=== PATIENT | male | born 1985 | race Caucasian/White ===

== ENCOUNTER 2018-07-30 14:54 | Emergency (ER) | payer OTHER ==
[~2018-07-30] VITALS: Ht 182.9 cm; Wt 113.0 kg
--- NOTE | 2018-07-30 15:00 | NUR ---
PT STRAIGHT BACK FROM US W/ CO LLE DVT DX BY . PT REPORTS LLE PAIN/SWELLING X FOUR DAYS. L CALF APPEARS RED/SWOLLEN. <2S CAP REFILL, +CMS. PEDAL PULSE FAINT. PT DENIES CP/SOB/GROSS NEURO INTACT. XARELTO ADMIN BY AREA COORDINATOR. BP/SPO2/ECG MONITORING IN PLACE. NSR ON MONITOR.
[2018-07-30 16:09] VITALS: BP 128/70
--- NOTE | 2018-07-30 16:10 | NUR ---
LAB IN TO DRAW. PT REPORTING INCREASE IN LLE PAIN AND IS REQUESTING PAIN MEDS. ERP AWARE. AWAITING ORDER
[2018-07-30 16:23] LABS: BASOPHILS # (AUTO) 0.03 x10^3/uL (0-0.1); BASOPHILS % (AUTO) 1 % (0-1); EOSINOPHILS # (AUTO) 0.28 x10^3/uL (0-0.4); EOSINOPHILS % (AUTO) 4 % (1-7); LYMPHOCYTES # (AUTO) 2.32 x10^3/uL (1-3.4); LYMPHOCYTES % (AUTO) 32 % (22-44); MD NO; MEAN CORPUSCULAR HEMOGLOBIN 30.4 pg (27.5-34.5); MEAN CORPUSCULAR HGB CONC 35.3 g/dL (33.2-36.2); MEAN CORPUSCULAR VOLUME 86.3 fL (81-97); MEAN PLATELET VOLUME 7.3 fL (7.4-10.4); MONOCYTES # (AUTO) 0.51 x10^3/uL (0.2-0.8); MONOCYTES % (AUTO) 7 % (2-9); NEUTROPHILS # (AUTO) 4.15 x10^3/uL (1.8-6.8); NEUTROPHILS % (AUTO) 57 % (42-75); PLATELET COUNT 193 x10^3/uL (130-400); RED BLOOD COUNT 4.91 x10^6/uL (4.38-5.82); RED CELL DISTRIBUTION WIDTH 12.3 % (9.4-14.8)
[2018-07-30] MEDS ORDERED: OXYcodone/APAP 5/325MG TABLET ONE (16:23)
[2018-07-30 16:31] LABS: ANION GAP 8 mmol/L (5-15); CHLORIDE 109 mmol/L (98-107)
--- NOTE | 2018-07-30 16:52 | NUR ---
DC EDUCATION PROVIDED, PT DEMONSTRATES UNDERSTANDING. PT TRANSFERED SELF TO WHEELCHAIR. WHEELED TO DC WITH RN AND FAMILY. TO TRANSPORT PT HOME.
[2018-07-30] MEDS ORDERED: OXYcodone/APAP 5/325MG TABLET PO ONE (17:00)
== END 2018-07-30 16:54 | disposition home or self-care (01) ==
LOC: ED 16:52
DX: I82.412 Acute embolism and thrombosis of left femoral vein (principal); I82.432 Acute embolism and thrombosis of left popliteal vein; I82.442 Acute embolism and thrombosis of left tibial vein
CPT/HCPCS: 36415; 80048; 81241; 85025; 85303; 85306; 99283

== ENCOUNTER → 2018-07-30 | Outpatient (CLI) | payer OTHER ==
[~2018-07-30] MED LIST: RIVA15TA PO
== END | disposition home or self-care (01) ==
LOC: RAD 13:48
PROVIDERS: ATTEND Emergency Medicine
DX: I82.4Z2 Acute embolism and thrombosis of unspecified deep veins of left distal lower extremity (principal)

== ENCOUNTER 2018-08-01 00:27 | Emergency (ER) | payer OTHER ==
[~2018-08-01] VITALS: Ht 182.9 cm; Wt 112.0 kg
--- NOTE | 2018-08-01 01:34 | NUR ---
PT IN ROOM ERP AT BEDSIDE. VSS, C/O LEG PAIN AND INTERMITTEN CHEST PAIN, DVT DIAGNOSED 2 DAYS AGO.
[2018-08-01] MEDS ORDERED: RIVA15TA PO (01:37)
[2018-08-01] MEDS ORDERED: HYDROmorphone 2 MG/ML, 1ML ONE (02:15)
--- NOTE | 2018-08-01 02:20 | NUR ---
PT MEDICATED FOR PAIN PER EMAR
[2018-08-01] MEDS ORDERED: HYDROmorphone 2 MG/ML, 1ML IVPush PRN (02:30)
[2018-08-01 02:38] LABS: INTERNATIONAL NORMALIZED RATIO 1.2 (0.93-1.1); PROTHROMBIN TIME 12.6 Seconds (9.6-11.5)
--- NOTE | 2018-08-01 02:42 | NUR ---
PT IN US ATT.
--- NOTE | 2018-08-01 03:00 | NUR ---
REPORT RECEIVED, CARE ASSUMED.
[2018-08-01 03:37] VITALS: BP 116/71
--- NOTE | 2018-08-01 03:38 | NUR ---
RESULTS IN, CHART UP FOR RECHECK. PT RESTING QUIETLY, NO S/S DISTRESS. DENIES PAIN. VS NOTED.
[2018-08-01] MEDS ORDERED: ONDANSETRON ODT 4 MG ONE (04:36)
--- NOTE | 2018-08-01 04:37 | NUR ---
PT HAS BEEN CLEARED FOR DISCHARGE. PT C/O NAUSEA, PROVIDER NOTIFIED.
[2018-08-01] MEDS ORDERED: ONDANSETRON ODT 4 MG PO ONE (05:00)
== END 2018-08-01 04:46 | disposition home or self-care (01) ==
LOC: ED 01:29
DX: I82.412 Acute embolism and thrombosis of left femoral vein (principal); I82.432 Acute embolism and thrombosis of left popliteal vein; I82.442 Acute embolism and thrombosis of left tibial vein; M79.662 Pain in left lower leg
CPT/HCPCS: 36415; 85610; 85730; 93005; 93971; 96374; 99284; J1170; Q0162; 99283